=== PATIENT | male | born 2000 | race Caucasian/White ===

== ENCOUNTER 2020-07-04 23:12 | Emergency (ER) | payer OTHER, SELFPAY ==
[2020-07-04 23:20] VITALS: BP 128/86; PULSE 74; RESP 18; TEMP 36.6; O2SAT 100
--- NOTE | 2020-07-04 23:54 | ED.GENADULT ---
HPI - General Adult General Chief complaint: Unspecified Stated complaint: hemorroids & poison jeff Time Seen by Provider: 07/04/20 23:15 History of Present Illness HPI narrative: Patient is a 20-year-old male who presents the ER with hemorrhoids. Popped up couple days ago. Reports she had been constipated over the last week but is now having normal bowel movements. He has been applying Preparation H but still has some discomfort. No bleeding. Related Data Allergies Allergy/AdvReac Type Severity Reaction Status Date / Time Penicillins Allergy Intermediate Hives Verified 07/04/20 23:26 Review of Systems Constitutional: Constitutional: Denies chills and Denies fever(s) ENT: Denies nasal congestion and Denies sore throat Gastrointestinal: Gastrointestinal: Denies abdominal pain, Reports constipation, Denies nausea and Denies vomiting PMFSH Past Medical History Medical History (Updated 07/05/20 @ 00:11 by Foster Zhao MD) Healthy adult male Surgical History Surgical History (Updated 07/05/20 @ 00:08 by Fostre Zhao MD) No history of previous surgery Exam Narrative: Exam Narrative: GENERAL: Well-appearing, well-nourished, and in no acute distress. HEAD: Normocephalic, atraumatic. CHEST: Clear to auscultation. No respiratory distress. HEART: Regular rate and rhythm. No murmur heard. Normal peripheral pulses. Rectal: Small external hemorrhoid at the 3:00 and 9:00 positions when laying in the right lateral decubitus position. Nonthrombosed and nonbleeding. EXTREMITIES: Normal range of motion. No edema. SKIN: Warm, dry, poison jeff bilateral upper extremities without weeping or scabbing. NEURO: Alert and oriented x3. Course Course Emergency Course: Educated on hemorrhoid care. Discharge home. Vital Signs Vital signs: Vital Signs Temperature 97.9 F 07/04/20 23:20 Pulse Rate 74 07/04/20 23:20 Respiratory Rate 18 07/04/20 23:20 Blood Pressure 128/86 07/04/20 23:20 Pulse Oximetry 100 07/04/20 23:20 Temperature 97.9 F 07/04/20 23:20 Pulse Rate 74 07/04/20 23:20 Respiratory Rate 18 07/04/20 23:20 Blood Pressure 128/86 07/04/20 23:20 Pulse Oximetry 100 07/04/20 23:20 Medical Decision Making Vital Signs Vital Signs: Vital Signs Temperature 97.9 F 07/04/20 23:20 Pulse Rate 74 07/04/20 23:20 Respiratory Rate 18 07/04/20 23:20 Blood Pressure 128/86 07/04/20 23:20 Pulse Oximetry 100 07/04/20 23:20 Temperature 97.9 F 07/04/20 23:20 Pulse Rate 74 07/04/20 23:20 Respiratory Rate 18 07/04/20 23:20 Blood Pressure 128/86 07/04/20 23:20 Pulse Oximetry 100 07/04/20 23:20 Discharge Plan Discharge Clinical Impression: Hemorrhoids Patient Disposition: Home, Self-Care Condition: Stable Instructions: Hemorrhoids (ED) Additional Instructions: He would benefit from using sitz salt water soaks 3 times a day in conjunction with preparation h and withhazel pads. If constipated us a stool softener so you do not have to strain. Return to the ER if you have increased pain, you have severe uncontrolled bleeding, you cannot keep down food or water, you have additional concerns. Prescriptions: New Tucks (witch amrita) 50 % pads, medicated 1 pad TOPICAL BID Qty: 40 RF: 0 Follow-up/Referrals: PHYSICIAN,WE[employer] DAT[employer] DEVELOPER [Primary Care Provider] - Meka Soto MD [Physician] - 1 Week
== END 2020-07-05 00:42 | disposition home or self-care (01) ==
LOC: ANHED 07-05 00:19
PROVIDERS: Emergency Provider Emergency Medicine
DX: K64.9 Unspecified hemorrhoids (principal)
CPT/HCPCS: 99283